=== PATIENT | female | born 1945 | race Caucasian/White ===

== ENCOUNTER 2021-05-12 11:55 | Day surgery (SDC) | payer MEDICARE, OTHER ==
[2021-05-05 14:56] LABS: BASOPHILS % (AUTO) 0.3 % (0-1); EOSINOPHILS # (AUTO) 0.1 X10'3 (0-0.9); EOSINOPHILS % (AUTO) 1.8 % (0-6); LYMPHOCYTES # (AUTO) 1.2 X10'3 (1.1-4.8); LYMPHOCYTES % (AUTO) 16.2 % (21-51); MEAN CORPUSCULAR HEMOGLOBIN 30.8 PG (27.0-31.0); MEAN CORPUSCULAR VOLUME 93.4 FL (78-98); MEAN PLATELET VOLUME 8.2 FL (7.4-10.4); MONOCYTES # (AUTO) 0.6 X10'3 (0-0.9); MONOCYTES % (AUTO) 8.9 % (2-12); NEUTROPHILS # (AUTO) 5.2 X10'3 (1.8-7.7); NEUTROPHILS % (AUTO) 72.8 % (42-75); PRE OP HEMATOCRIT 46.1 % (35.0-45.0); PRE OP HEMOGLOBIN 15.2 g/dL (12.0-16.0); PRE OP PLATELET COUNT 205 X10'3 (140-440); RED BLOOD COUNT 4.93 X10'6 (4.20-5.60); RED CELL DISTRIBUTION WIDTH 16.7 % (11.5-14.5)
[2021-05-05 14:59] LABS: CLARITY,URINE CLEAR (Clear); COLOR,URINE STRAW (Yellow); GLUCOSE, URINE NEGATIVE (Neg); KETONES,URINE NEGATIVE (Neg); LEUKOCYTE ESTERASE ,URINE NEGATIVE (Neg); NITRITES, URINE NEGATIVE (Neg); OCCULT BLOOD,URINE NEGATIVE (Neg); PROTEIN,URINE NEGATIVE (Neg); UROBILINOGEN,URINE 0.2 E.U/dL (0.2-1.0)
[2021-05-05 15:02] LABS: UA COLLECTION TYPE CLN CATCH MIDSTREAM
[2021-05-05 15:09] LABS: ALBUMIN/GLOBULIN RATIO 1.1 (1.1-1.5); ALKALINE PHOSPHATASE 113 IU/L (46-116); BLOOD UREA NITROGEN 19 MG/DL (7-18); BUN/CREATININE RATIO 18.8 (6.6-38.0); CALCIUM 9.3 MG/DL (8.5-10.1); CHLORIDE 106 MMOL/L (99-107); CREATININE 1.01 MG/DL (0.40-0.90); PRE OP ALT 18 U/L (30-65); PRE OP ANION GAP 6 (8-16); PRE OP AST 17 U/L (10-37); PRE OP BILIRUB, TOTAL 0.7 MG/DL (0.0-1.0); PRE OP GLUCOSE 101 MG/DL (70-104); PRE OP POTASSIUM 3.6 MMOL/L (3.4-5.1); PRE OP SODIUM 143 MMOL/L (135-145); TOTAL CARBON DIOXIDE 31.4 MMOL/L (24-32); TOTAL PROTEIN 7.7 G/DL (6.4-8.2); eGFR 54 ML/MIN
[~2021-05-12] VITALS: Ht 160 cm; Wt 113.5 kg
[~2021-05-12 11:55] MED LIST: ASCO100T12 PO; ASPI-107 PO; ATOR40TA PO; CALC-336 PO; CYAN500T71 PO; FEXO-124 PO; FOLI0.4T14 PO; LEVO75TA PO; LISI40TA13 PO; MELA2.5T PO; METH2.5T PO; OMEP20TA5 PO; REM100I IV; SERT50TA PO; UBID50TA3 PO; ceFOXitin 2GM-NS 100mL ADDvant 100 ML IV ONE; famotidine 20mg tablet PO ONE; ringers solution, lacted 1,000 ML IV SCH
[2021-05-12 12:05] VITALS: BP 131/85
[2021-05-12] MEDS ORDERED: fentaNYL/PF 50MCG/1 ML 2ML syringe ONE (15:08)
[2021-05-12] MEDS ORDERED: midazolam 1 mg/ML 2ml injection ONE (15:08)
[2021-05-12] MEDS ORDERED: sevoflurane 250ml liquid IH ONE (15:08)
[2021-05-12] MEDS ORDERED: rocuronium 10mg/ml inj IV ONE (15:29)
[2021-05-12] MEDS ORDERED: LIDOcaine 2% (20mg/ml) 5ml vial ONE (15:29)
[2021-05-12] MEDS ORDERED: propofol inj 20 ML IV ONE (15:29)
[2021-05-12] MEDS ORDERED: succinylcholine 20mg/ml inj IV ONE (15:29)
[2021-05-12] MEDS ORDERED: ondansetron/PF 4mg/2ml inj ONE (15:36)
[2021-05-12] MEDS ORDERED: dexamethasone sod phosphate 4mg/ml inj. ONE (15:36)
[2021-05-12 16:16] VITALS: BP 135/77
--- NOTE | 2021-05-12 16:16 | NUR ---
Received from OR via PABLO , accompanied by Anesthesiologist ANKUSH and report given by Anesthesiolgist. PATIENT WITH 20G PIV IN RIGHT UE RUNNING LR AT 100. DENIES PAIN. RADHA PAD IN PLACE. VSS. Addendum: 05/12/21 at 1634 by Edmar Nugent RN, RN Amended: Links added.
[2021-05-12 16:20] VITALS: BP 130/60
[2021-05-12] MEDS ORDERED: morphine 4 MG/ML inj SYRINge IV PRN (16:20)
[2021-05-12] MEDS ORDERED: ringers solution, lacted 1,000 ML IV SCH (16:20)
[2021-05-12] MEDS ORDERED: meperidine/PF 25mg/ml syringe IV PRN (16:20)
[2021-05-12] MEDS ORDERED: morphine 2 MG/ML inj. syringe IV PRN (16:20)
[2021-05-12] MEDS ORDERED: hydrALAZINE 20mg/ml inj. IV PRN (16:20)
[2021-05-12] MEDS ORDERED: ondansetron/PF 4mg/2ml inj IV PRN (16:20)
[2021-05-12] MEDS ORDERED: labetalol 20mg/4ml (5mg/ml) syringe IV PRN (16:20)
[2021-05-12] MEDS ORDERED: HYDROmorphone/PF 0.2 MG/ML SYRINGE IV PRN ×2 (16:20)
[2021-05-12] MEDS ORDERED: proCHLORperazine 10 MG/2 ml inj IV PRN (16:20)
[2021-05-12 16:30] VITALS: BP 132/64
[2021-05-12 16:40] VITALS: BP 131/61
[2021-05-12 16:50] VITALS: BP 133/67
--- NOTE | 2021-05-12 16:56 | NUR ---
ALL DISCHARGE CRITERIA HAS BEEN MET. VSS, PAIN AT A TOLERABLE LEVEL, VOIDING AND ABLE TO SAFELY AMBULATE AND TRANSFER SELF. IV TAKEN OUT WITHOUT ANY COMPLICATIONS. ALL DISCHARGE INSTRUCTIONS COVERED WITH PATIENT AND ALL QUESTIONS ANSWERED. PATIENT TAKEN OUT VIA WHEELCHAIR TO PERSONAL VEHICLE WHERE FAMILY/FRIEND DROVE PATIENT HOME. SIG OTHER DROVE PATIENT HOME. RADHA PAD PROVIDED AND AHMET BUSTOS PRESENT TO ASSIST WITH DRESSING PATIENT. Addendum: 05/12/21 at 1702 by Edmar Sow - AHMET LEO Amended: Links added.
== END 2021-05-12 16:56 | disposition home or self-care (01) ==
LOC: PAS 11:55
PROVIDERS: ATTEND Obstetrics & Gynecology Obstetrics
DX: N95.0 Postmenopausal bleeding (principal); N84.0 Polyp of corpus uteri; E66.01 Morbid (severe) obesity due to excess calories; Z68.42 Body mass index [BMI] 45.0-49.9, adult; M19.90 Unspecified osteoarthritis, unspecified site; F32.9 Major depressive disorder, single episode, unspecified; I10 Essential (primary) hypertension; M81.0 Age-related osteoporosis without current pathological fracture; K21.9 Gastro-esophageal reflux disease without esophagitis; G47.30 Sleep apnea, unspecified; Z79.899 Other long term (current) drug therapy; Z85.3 Personal history of malignant neoplasm of breast; Z98.890 Other specified postprocedural states; Z72.89 Other problems related to lifestyle; Z88.5 Allergy status to narcotic agent; Z91.030 Bee allergy status; Z82.49 Family history of ischemic heart disease and other diseases of the circulatory system; Z82.3 Family history of stroke; Z80.1 Family history of malignant neoplasm of trachea, bronchus and lung
CPT/HCPCS: 36415; 58558; 80053; 81003; 82948; 85025; 86885; 86900; 86901; 93005; J0330; J0694; J1100; J2001; J2250; J2405; J2704; J3010; J7030; A4355; A4618; A6258; A7000; J7120

== ENCOUNTER 2023-01-11 08:20 | Day surgery (SDC) | payer BC ==
[2023-01-04 16:46] LABS: BASOPHILS # (AUTO) 0.1 X10'3 (0-0.2); BASOPHILS % (AUTO) 0.6 % (0-1); EOSINOPHILS # (AUTO) 0.2 X10'3 (0-0.9); EOSINOPHILS % (AUTO) 2.9 % (0-6); LYMPHOCYTES % (AUTO) 12.2 % (21-51); MEAN CORPUSCULAR HEMOGLOBIN 31.1 PG (27.0-31.0); MEAN CORPUSCULAR HGB CONC 33.1 g/dL (33.0-36.5); MEAN CORPUSCULAR VOLUME 93.9 FL (78-98); MEAN PLATELET VOLUME 8.5 FL (7.4-10.4); MONOCYTES # (AUTO) 0.8 X10'3 (0-0.9); MONOCYTES % (AUTO) 9.4 % (2-12); NEUTROPHILS # (AUTO) 6.3 X10'3 (1.8-7.7); NEUTROPHILS % (AUTO) 74.9 % (42-75); PRE OP HEMATOCRIT 46.6 % (35.0-45.0); PRE OP HEMOGLOBIN 15.4 g/dL (12.0-16.0); PRE OP PLATELET COUNT 178 X10'3 (140-440); RED BLOOD COUNT 4.96 X10'6 (4.20-5.60); RED CELL DISTRIBUTION WIDTH 16.6 % (11.5-14.5)
[2023-01-04 16:48] LABS: CLARITY,URINE SLIGHTLY CLOUDY (Clear); COLOR,URINE YELLOW (Yellow); GLUCOSE, URINE NEGATIVE (Neg); KETONES,URINE NEGATIVE (Neg); LEUKOCYTE ESTERASE ,URINE NEGATIVE (Neg); NITRITES, URINE NEGATIVE (Neg); OCCULT BLOOD,URINE NEGATIVE (Neg); PH,URINE 5.5 (4.8-8.0); PROTEIN,URINE NEGATIVE (Neg); UROBILINOGEN,URINE 0.2 E.U/dL (0.2-1.0)
[2023-01-04 16:50] LABS: ALBUMIN 4.2 G/DL (3.4-5.0); ALBUMIN/GLOBULIN RATIO 1.2 (1.1-1.5); ALKALINE PHOSPHATASE 100 IU/L (46-116); BLOOD UREA NITROGEN 23 MG/DL (7-18); BUN/CREATININE RATIO 21.9 (6.6-38.0); CHLORIDE 103 MMOL/L (99-107); CREATININE 1.05 MG/DL (0.40-0.90); PRE OP ALT 16 U/L (30-65); PRE OP ANION GAP 8 (8-16); PRE OP AST 26 U/L (10-37); PRE OP BILIRUB, TOTAL 0.6 MG/DL (0.0-1.0); PRE OP GLUCOSE 122 MG/DL (70-104); PRE OP POTASSIUM 3.9 MMOL/L (3.4-5.1); PRE OP SODIUM 139 MMOL/L (135-145); TOTAL CARBON DIOXIDE 28.5 MMOL/L (24-32); TOTAL PROTEIN 7.7 G/DL (6.4-8.2); eGFR 51 ML/MIN
[2023-01-04 16:56] LABS: MUCUS STRANDS MODERATE /LPF (Neg); SQUAMOUS EPITHELIAL CELL,UR MODERATE /LPF (FEW); UA COLLECTION TYPE CLN CATCH MIDSTREAM
[2023-01-04 16:57] LABS: BACTERIA,URINE FEW /HPF (Neg); RBC,URINE 0-2 /HPF (0-2); WBC,URINE 0-4 /HPF (0-4)
[2023-01-04 16:58] LABS: CAL OXALATE CRYSTALS FEW /HPF (NEGATIVE)
[~2023-01-11] VITALS: Ht 160 cm; Wt 118.1 kg
[2023-01-11] VITALS (12 sets, daily range): BP systolic 110–142; BP diastolic 54–73
[~2023-01-11 08:20] MED LIST changes: +CHOL400T57 PO; -FEXO-124 PO; +LEVO125T8 PO; -LEVO75TA PO; -MELA2.5T PO; +OMEP20TA43 PO; -OMEP20TA5 PO; -REM100I IV
[2023-01-11] MEDS ORDERED: BUPIVAcaine 0.5% inj/PF 0 ML ONE (09:47)
[2023-01-11] MEDS ORDERED: vasoPRESSIN 20 units/ml inj. ONE ×2 (09:48→10:19)
[2023-01-11] MEDS ORDERED: neomy sulf/polymyxin B sulf. GU irrigation 1ml amp IR ONE ×2 (09:49→10:19)
[2023-01-11] MEDS ORDERED: clindamycin phosphate 40gm vag cream ONE (09:49)
[2023-01-11] MEDS ORDERED: fentaNYL /PF 50mcg/ml 5ml ampule ONE (10:19)
[2023-01-11] MEDS ORDERED: BUPIVAcaine 0.5% inj/PF 60 ML ONE (10:19)
[2023-01-11] MEDS ORDERED: morphine 2 MG/ML inj. syringe IV PRN (10:45)
[2023-01-11] MEDS ORDERED: ringers solution, lacted 1,000 ML IV SCH (10:45)
[2023-01-11] MEDS ORDERED: morphine 4 MG/ML inj SYRINge IV PRN (10:45)
[2023-01-11] MEDS ORDERED: HYDROmorphone/PF 0.2 MG/ML SYRINGE IV PRN ×2 (10:45)
[2023-01-11] MEDS ORDERED: ondansetron/PF 4mg/2ml inj IV PRN ×2 (10:45→14:05)
[2023-01-11] MEDS ORDERED: BUPIVAcaine 0.5% inj/PF 30 ml vial IJ ONE (11:15)
[2023-01-11] MEDS ORDERED: sugammadex 200mg/2ml injection IV ONE (14:04)
[2023-01-11] MEDS ORDERED: diphenhydrAMINE 50 mg/ml inj IV PRN (14:05)
[2023-01-11] MEDS ORDERED: normal saline 500ml IV soln 500 ML IV PRN (14:05)
[2023-01-11] MEDS ORDERED: magnesium hydroxide 30ml (MOM) UD suspension PO PRN (14:05)
[2023-01-11] MEDS ORDERED: temazepam 15mg capsule PO PRN (14:05)
[2023-01-11] MEDS ORDERED: metoclopramide 5 mg/ml inj IV PRN (14:05)
[2023-01-11] MEDS ORDERED: traMADol 50MG tablet PO PRN (14:05)
[2023-01-11] MEDS ORDERED: LORazepam 2 mg/ml vial IV PRN (14:05)
--- NOTE | 2023-01-11 14:12 | NUR ---
Received from OR via ORTHO BED WITH OHFT, accompanied by Anesthesiologist and report given by Anesthesiolgist. PATIENT WITH 4 ABDOMINLAL LAP SITES THAT ARE CDI. PATIENT WITH SCOTT CATHETER FROM THE OR. 22G PIV IN LEFT HAND RUNNING LR AT 100. DENIES PAIN AT THIS TIME. 10L MASK ON WITH 100% SATURATIONS. Addendum: 01/11/23 at 1443 by Edmar Nugent RN, RN Amended: Links added.
[2023-01-11] MEDS ORDERED: ondansetron/PF 4mg/2ml inj ONE (14:49)
[2023-01-11] MEDS ORDERED: propofol inj 20 ML IV ONE (14:49)
[2023-01-11] MEDS ORDERED: neostigmine methylsulfate 1 MG/ML 10ml vial ONE (14:49)
[2023-01-11] MEDS ORDERED: dexamethasone sod phosphate 4mg/ml inj. ONE (14:49)
[2023-01-11] MEDS ORDERED: phenylephrine 10mg/ml inj. -priapism dosing ONE (14:49)
[2023-01-11] MEDS ORDERED: LIDOcaine 2% (20mg/ml) 5ml vial ONE (14:49)
[2023-01-11] MEDS ORDERED: glycopyrrolate 0.2mg/ml inj ONE (14:49)
[2023-01-11] MEDS ORDERED: rocuronium 10mg/ml inj IV ONE (14:49)
[2023-01-11] MEDS ORDERED: ePHEDrine 50MG/ML INJ. ONE (14:49)
--- NOTE | 2023-01-11 15:32 | NUR ---
REPORT GIVEN AND ALL QUESTIONS ANSWERED. PATIENT TRANSFERRED TO SURG/. LABELED BELONGINGS PRESENT AND DELIVERED TO ROOM. RN PRESENT ALL CRITERIA FOR TRANSFER BACK TO THE FLOOR HAS BEEN ACHIEVED. VSS. PAIN AT A TOLERABLE LEVEL. BED LOW, CALL LIGHT PRESENT AND 2 RAILS DOWN. RN AWARE THAT PATIENT HAS ARRIVED. AHMET SALAS PRESENT TO ACCEPT CARE OF PATIENT.2 LABELED BAGS OF BELONGINGS AND A BIPAP WAS SENT WELL. VSS. BOOSTED UP IN BED AND CARE ASSUMED BY AHMET SALAS. Addendum: 01/11/23 at 1552 by Edmar Sow - AHMET LEO Amended: Links added.
[2023-01-11] MEDS: ringers solution, lacted 1,000 ML IV SCH ×2 (16:20→17:46)
[2023-01-11] MEDS ORDERED: sevoflurane 250ml liquid IH ONE (18:45)
[2023-01-11] MEDS: docusate sod 100mg capsule PO SCH (20:13)
[2023-01-12 06:00] VITALS: BP 135/64
[2023-01-12] MEDS: ringers solution, lacted 1,000 ML IV SCH (06:05)
--- NOTE | 2023-01-12 06:31 | NUR ---
Problems reprioritized. Patient report given, questions answered & plan of care reviewed with AHMET Zamora.
--- NOTE | 2023-01-12 06:37 | NUR ---
Patient in room [id number]. I have received report from SENA LEO and had the opportunity to ask questions and assume patient care.
[2023-01-12 07:04] LABS: BASOPHILS % (AUTO) 0.2 % (0-1); EOSINOPHILS % (AUTO) 0.3 % (0-6); HEMATOCRIT 44.2 % (35.0-45.0); HEMOGLOBIN 14.5 g/dl (12.0-16.0); LYMPHOCYTES # (AUTO) 1.1 X10'3 (1.1-4.8); LYMPHOCYTES % (AUTO) 10.9 % (21-51); MEAN CORPUSCULAR HEMOGLOBIN 30.7 PG (27.0-31.0); MEAN CORPUSCULAR HGB CONC 32.8 g/dL (33.0-36.5); MEAN CORPUSCULAR VOLUME 93.7 FL (78-98); MEAN PLATELET VOLUME 8.3 FL (7.4-10.4); MONOCYTES # (AUTO) 0.9 X10'3 (0-0.9); MONOCYTES % (AUTO) 9.4 % (2-12); NEUTROPHILS # (AUTO) 7.9 X10'3 (1.8-7.7); NEUTROPHILS % (AUTO) 79.2 % (42-75); PLATELET COUNT 227 X10'3 (140-440); RED BLOOD COUNT 4.72 X10'6 (4.20-5.60); RED CELL DISTRIBUTION WIDTH 16.3 % (11.5-14.5)
[2023-01-12] MEDS: docusate sod 100mg capsule PO SCH (07:31)
[2023-01-12 07:36] LABS: ALBUMIN 3.7 G/DL (3.4-5.0); ANION GAP 9 (8-16); BLOOD UREA NITROGEN 13 MG/DL (7-18); CALCIUM 9.3 MG/DL (8.5-10.1); CHLORIDE 106 MMOL/L (99-107); GLUCOSE 132 MG/DL (70-104); POTASSIUM 4.2 MMOL/L (3.5-5.1); SODIUM 141 MMOL/L (135-145); TOTAL CARBON DIOXIDE 25.9 MMOL/L (24-32); eGFR 54 ML/MIN
[2023-01-12 10:00] VITALS: BP 127/55
--- NOTE | 2023-01-12 13:00 | NUR ---
PT DISCHARGED IN STABLE CONDITION. LEFT FACILITY IN PRIVATE VEHICLE. IV DC CANULA INTACT. FOLLOW UP INSTRUCTIONS GIVEN, ALL QUESTIONS ANSWERED. ALL BELONGINGS IN HAND.
== END 2023-01-12 13:00 | disposition home or self-care (01) ==
LOC: PAS 08:20 → SUR 3N 14:07 → PAS 01-12 13:00
PROVIDERS: ATTEND Obstetrics & Gynecology Obstetrics
DX: N95.0 Postmenopausal bleeding (principal); N80.03 Adenomyosis of the uterus; N83.312 Acquired atrophy of left ovary; N83.311 Acquired atrophy of right ovary; N87.9 Dysplasia of cervix uteri, unspecified; N83.201 Unspecified ovarian cyst, right side; I10 Essential (primary) hypertension; C50.919 Malignant neoplasm of unspecified site of unspecified female breast; Z88.6 Allergy status to analgesic agent; Z88.5 Allergy status to narcotic agent; Z91.030 Bee allergy status; Z96.632 Presence of left artificial wrist joint; Z98.890 Other specified postprocedural states; Z79.82 Long term (current) use of aspirin; Z79.899 Other long term (current) drug therapy
CPT/HCPCS: 36415; 58552; 71046; 80048; 80053; 81001; 82948; 85025; 86885; 86900; 86901; 93005; J0694; J1100; J2370; J2405; J2704; J2710; J3010; J3490; J7030; J7120; S0020; Z7506; Z7508; Z7512; 88307; A4314; A4615; A4618; A7000; G0378